=== PATIENT | female | born 1950 | race Hispanic/Latino ===

== ENCOUNTER 2017-04-08 09:05 | Emergency (ER) | payer MEDICARE ==
[2017-04-08 09:05] VITALS: BMI 28.8
[2017-04-08 09:26] VITALS: TEMP 98.2
--- NOTE | 2017-04-08 09:43 | ED PDOC ---
Arrival/HPI - General Chief Complaint: Back Pain Time Seen by Provider: 04/08/17 09:37 Historian: Patient - History of Present Illness Narrative History of Present Illness (Text): 04/08/17 09:43 This 67 yo female presents to this ED c/o left back pain x 3 days. Patient denies urinary symptoms, sob, cp, weakness, paresthesias, /GI incontinence, or trauma. Context: Home Past Medical History - Provider Review Nursing Documentation Reviewed: Yes - Infectious Disease Hx of Infectious Diseases: None - Tetanus Immunization Tetanus Immunization: Unknown - Cardiac Hx Hypertension: Yes - Pulmonary Hx Respiratory Disorders: No - Neurological Hx Neurological Disorder: No Hx Paralysis: No - HEENT Hx HEENT Disorder: No - Renal Hx Renal Disorder: No - Endocrine/Metabolic Hx Endocrine Disorders: No - Hematological/Oncological Hx Blood Transfusions: No Hx Blood Transfusion Reaction: No - Integumentary Hx Dermatological Disorder: No - Musculoskeletal/Rheumatological Hx Arthritis: Yes - Gastrointestinal Hx Gastrointestinal Disorders: No - Genitourinary/Gynecological Hx Genitourinary Disorders: No - Psychiatric Hx Psychophysiologic Disorder: No Hx Emotional Abuse: No Hx Physical Abuse: No Hx Substance Use: No - Past Surgical History Past Surgical History: No Previous - Surgical History Hx Orthopedic Surgery: Yes - Anesthesia Hx Anesthesia Reactions: No Hx Malignant Hyperthermia: No - Suicidal Assessment Feels Threatened In Home Enviroment: No Family/Social History - Physician Review Nursing Documentation Reviewed: Yes Family/Social History: No Known Family HX Smoking Status: Current Some Days Smoker Hx Alcohol Use: No Hx Substance Use: No Allergies/Home Meds Allergies/Adverse Reactions: Allergies No Known Allergies Allergy (Verified 04/08/17 09:21) Home Medications: Home Meds Medication Instructions Recorded Confirmed Folic Acid 1 mg PO DAILY 02/06/17 04/11/17 Meloxicam [Mobic] 15 mg PO DAILY PRN 02/06/17 04/11/17 Methotrexate [Methotrexate] 5 mg PO QWK 02/06/17 04/11/17 Pravastatin Sodium [Pravachol] 40 mg PO DAILY 02/06/17 04/11/17 amLODIPine [Norvasc] 5 mg PO DAILY 02/06/17 04/11/17 Hydrocodone/Ibuprofen 1 tab PO Q6H PRN 04/11/17 04/11/17 [Hydrocodone-Ibuprofen 7.5-200] Review of Systems - Review of Systems Constitutional: Normal. absent: Fatigue, Weight Change, Fevers Eyes: Normal ENT: Normal Respiratory: Normal Cardiovascular: Normal Gastrointestinal: Normal Genitourinary Female: Normal Musculoskeletal: Other ((+) 4th toe pain) Skin: Normal Neurological: Normal Endocrine: Normal Hemo/Lymphatic: Normal Psychiatric: Normal Physical Exam Vital Signs Temp Pulse Resp BP Pulse Ox 04/08/17 15:30 68 18 145/65 95 04/08/17 13:33 69 18 152/68 H 95 04/08/17 12:22 75 18 155/71 H 95 04/08/17 11:05 79 18 158/79 H 95 04/08/17 09:25 98.2 F 83 16 162/89 H 94 L Temperature: Afebrile Blood Pressure: Normal Pulse: Regular Respiratory Rate: Normal Appearance: Positive for: Well-Appearing, Non-Toxic, Comfortable Pain Distress: None Mental Status: Positive for: Alert and Oriented X 3 - Systems Exam Head: Present: Atraumatic, Normocephalic Pupils: Present: PERRL Extroacular Muscles: Present: EOMI Conjunctiva: Present: Normal Mouth: Present: Moist Mucous Membranes Neck: Present: Normal Range of Motion Respiratory/Chest: Present: Clear to Auscultation, Good Air Exchange. No: Respiratory Distress, Accessory Muscle Use Cardiovascular: Present: Regular Rate and Rhythm, Normal S1, S2. No: Murmurs Abdomen: Present: Normal Bowel Sounds. No: Tenderness, Distention, Peritoneal Signs Back: Present: Normal Inspection Upper Extremity: Present: Normal Inspection. No: Cyanosis, Edema Lower Extremity: Present: Normal Inspection, NORMAL PULSES, Normal ROM, Tenderness (MILD TENDERNESS OVER LEFT DISTAL 4TH TOE. NO ERYTHEMA, SWELLING, OR ECCHYMOSIS). No: Edema, CALF TENDERNESS, Cyanosis Neurological: Present: GCS=15, CN II-XII Intact, Speech Normal Skin: Present: Warm, Dry, Normal Color. No: Rashes Psychiatric: Present: Alert, Oriented x 3, Normal [facility] Medical Decision Making ED Course and Treatment: 04/08/17 13:[address] Tsang cell number and left a message to call me back 04/08/17 14:00 Dr. Tsang has not call back yet. I have munitions worker to call Dr. Tsang again. 04/08/17 15:[address] Tsang Urologist. He stated if pain is control, patient can be discharged home. He noted ureter stone is large. To call his cell number as soon patient is d/c home. 04/08/17 15:20 Patient understands risk of addiction when taking Percocet. Do not drive or operate machinery Re-evaluation Time: 11:48 Reassessment Condition: Re-examined, Improved - Lab Interpretations Lab Results: 04/08/17 11:50 04/08/17 11:50 Lab Results 04/08/17 11:50: Sodium 138, Potassium 4.2, Chloride 103, Carbon Dioxide 26, Anion Gap 13, BUN 25 H, Creatinine 0.9, Est GFR ( Amer) > 60, Est GFR ( Non-Af Amer) > 60, Random Glucose 104, Calcium 9.2, Total Bilirubin 1.6 H, AST 29, ALT 37, Alkaline Phosphatase 81, Total Protein 8.0, Albumin 4.1, Globulin 3.9, Albumin/Globulin Ratio 1.1 04/08/17 11:50: WBC 9.7, RBC 4.13, Hgb 13.6, Hct 40.2, MCV 97.3, MCH 32.9, MCHC 33.8, RDW 13.0, Plt Count 203, MPV 8.4, Gran % 66.3, Lymph % (Auto) 18.0 L, [place] % (Auto) 13.7 H, Eos % (Auto) 1.7, Baso % (Auto) 0.3, Gran # 6.42, Lymph # 1.7, [place] # 1.3 H, Eos # 0.2, Baso # 0.03 04/08/17 09:59: Urine Color Yellow, Urine Appearance Clear, Urine pH 6.0, Ur Specific [place] 1.020, Urine Protein Negative, Urine Glucose (UA) Negative, Urine Ketones Negative, Urine Blood Large H, Urine Nitrate Negative, Urine Bilirubin Negative, Urine Urobilinogen 0.2, Ur Leukocyte Esterase Negative, Urine RBC 5 - 10, Urine WBC Negative, Ur Epithelial Cells 1 - 3 I have reviewed the lab results: Yes Interpretation: Abnormal lab values (hematuria) - RAD Interpretation Narrative RAD Interpretations (Text): 04/08/17 11:30 Accession No. : [id number] Patient Name / ID : SILVIA VALENCIA / [id number] Exam Date : 04/08/2017 09:50:06 ( Approved ) Study Comment : Sex / Age : F 7Y Creator : Deepika Coleman MD Dictator : Deepika Coleman MD Comb Capper : Lighting Fixture Installer : Deepika Coleman MD Approver2 : Report Date : 04/08/2017 10:46:40 My Comment : PROCEDURE: Radiographs of the Lumbar Spine. HISTORY: pain COMPARISON: No prior. FINDINGS: BONES: Normal alignment. No listhesis. No compressive deformity DISC SPACES: Mild narrowing of intervertebral disc space at L5-S1. OTHER FINDINGS: Facet hypertrophy. Accession No. : [id number] Patient Name / ID : SILVIA VALENCIA / [id number] Exam Date : 04/08/2017 11:53:12 ( Approved ) Study Comment : Sex / Age : F Y Creator : Deepika Coleman MD Dictator : Deepika Coleman MD Comb Capper : Lighting Fixture Installer : Deepika Coleman MD Approver2 : Report Date : 04/08/2017 13:02:16 My Comment : PROCEDURE: CT Abdomen and Pelvis without contrast. HISTORY: left flank pain COMPARISON: None. TECHNIQUE: Contiguous axial images of the abdomen and pelvis. No oral or IV contrast given. Coronal and Sagittal reformats generated. Please note that due to lack of intravenous and oral contrast, evaluation of soft tissue structures and bowel is limited. Radiation dose: Total exam DLP = 588.88 mGy-cm. This CT exam was performed using one or more of the following dose reduction techniques: Automated exposure control, adjustment of the mA and/or kV according to patient size, and/or use of iterative reconstruction technique. FINDINGS: LOWER THORAX: Mild bibasilar atelectatic changes noted. Visualized portions of the heart demonstrates no significant pericardial effusion. Hiatal hernia with bubbly densities likely ingested material. LIVER: Multi lobulated hypodensities in the left lobe of the liver with internal attenuation off approximately 3-7 Hounsfield units likely represents cysts. GALLBLADDER AND BILE DUCTS: No evidence of acute cholecystitis. Possible Phrygian cap. PANCREAS: Unremarkable. No mass. No ductal dilatation. SPLEEN: Unremarkable. No splenomegaly. ADRENALS: Unremarkable. KIDNEYS AND URETERS: Mildly enlarged left kidney with moderate hydronephrosis. Mild ureteral dilatation. In the mid segment of the left ureter there is a radiopaque calculus measuring 0.5 x 0.5 x 1.2 centimeters. Additional nonobstructing punctate calculus in the left interpolar segment. Unremarkable right kidney. BLADDER: Grossly unremarkable. REPRODUCTIVE: Please note that evaluation of gynecologic organs is not optimal on CT imaging. APPENDIX: Unremarkable. BOWEL: Unremarkable. No obstruction. No gross mural thickening. Diverticulosis without evidence diverticulitis. PERITONEUM: Unremarkable. No fluid collection. No free air. LYMPH NODES: Unremarkable. No enlarged lymph nodes. VASCULATURE: Unremarkable. No aortic aneurysm. BONES: No fracture or destructive lesion. OTHER FINDINGS: None. IMPRESSION: 0.5 x 0.5 x 1.2 centimeter radiopaque calculus in the mid segment of the left ureter with mild to moderate hydroureteral nephrosis. Additional punctate radiopaque calculus in the left interpolar segment. Unremarkable right kidney. Other findings as above. Discussed TAMEKA Harris at approximately 1:05 p.m. on 04/08/2017. Mild vascular calcifications IMPRESSION: No compressive deformity. Degenerative changes. 04/08/17 13:09 Radiology Orders: 04/08/17 09:44 LS SPINE WITH OBL > 18 YRS OLD [RAD] Stat 04/08/17 11:07 ABD & PELVIS W/O PO OR IV CONT [CT] Stat - Medication Orders Current Medication Orders: Discontinued Medications Sodium Chloride (Sodium Chloride 0.9%) 500 mls @ 999 mls/hr IV .Q31M STA Stop: 04/08/17 13:36 Last Admin: 04/08/17 13:34 Dose: 999 mls/hr Ketorolac Tromethamine (Toradol) 15 mg IVP STAT STA Stop: 04/08/17 13:04 Last Admin: 04/08/17 13:33 Dose: 15 mg Ondansetron HCl (Zofran Odt) 4 mg PO STAT STA Stop: 04/08/17 09:47 Last Admin: 04/08/17 10:04 Dose: 4 mg Oxycodone/Acetaminophen (Percocet 5/325 Mg Tab) 1 tab PO STAT STA Stop: 04/08/17 09:46 Last Admin: 04/08/17 09:59 Dose: 1 tab Tamsulosin HCl (Flomax) 0.4 mg PO STAT STA Stop: 04/08/17 13:05 Last Admin: 04/08/17 13:34 Dose: 0.4 mg Disposition/Present on Arrival - Present on Arrival Any Indicators Present on Arrival: No History of DVT/PE: No History of Uncontrolled Diabetes: No Urinary Catheter: No History of Decub. Ulcer: No History Surgical Site Infection Following: None - Disposition Have Diagnosis and Disposition been Completed?: Yes Diagnosis: Ureterolithiasis, Flank pain Disposition: HOME/ ROUTINE Disposition Time: 15:15 Patient Plan: Discharge Condition: IMPROVED Discharge Instructions (ExitCare): Kidney Stones (ED), How to Strain Your Urine (ED) Additional Instructions: Call Dr. Tsang at [phone] cell number. Take medication as instructed with food. Return to emergency if symptoms worsen. Prescriptions: Docusate Sodium [Colace] 100 mg PO BID #20 capsule Tamsulosin [Flomax] 0.4 mg PO DAILY #20 cap Referrals: Ludivina Diamond MD [Primary Care Provider] - Follow up with primary Joey Tsang MD [Staff Provider] - Follow up with primary
[2017-04-08] MEDS ORDERED: Oxycodone/Acetaminophen 5/325 mg Tab PO STA (09:45)
[2017-04-08 10:30] LABS: URINE BILIRUBIN NEGATIVE (NEGATIVE); URINE BLOOD LARGE (NEGATIVE); URINE GLUCOSE (UA) NEGATIVE (NEGATIVE); URINE KETONE NEGATIVE (NEGATIVE); URINE LEUKOCYTE ESTERASE NEGATIVE Leu/uL (NEGATIVE); URINE PROTEIN NEGATIVE mg/dL (<30 mg/dL); URINE UROBILINOGEN 0.2 E.U./dL (<1 E.U./dL)
[2017-04-08 10:34] LABS: URINE APPEARANCE CLEAR (CLEAR); URINE COLOR YELLOW (YELLOW)
[2017-04-08 10:35] LABS: URINE WBC NEGATIVE /hpf (0-6)
--- NOTE | 2017-04-08 10:48 | RAD ---
PROCEDURE: Radiographs of the Lumbar Spine. HISTORY: pain COMPARISON: No prior. FINDINGS: BONES: Normal alignment. No listhesis. No compressive deformity DISC SPACES: Mild narrowing of intervertebral disc space at L5-S1. OTHER FINDINGS: Facet hypertrophy. Mild vascular calcifications IMPRESSION: No compressive deformity. Degenerative changes.
[2017-04-08 11:08] VITALS: RESP 18; O2SAT 95
[2017-04-08 11:52] LABS: ADD MANUAL DIFF? NO
[2017-04-08 12:00] LABS: BASO # 0.03 K/mm3 (0.0-2.0); BASO % 0.3 % (0.0-3.0); EOS # 0.2 (0.0-0.7); EOS % 1.7 % (1.5-5.0); GRAN # 6.42 (1.4-6.5); GRAN % 66.3 % (50.0-68.0); HEMATOCRIT 40.2 % (36.0-48.0); LYMPH # 1.7 (1.2-3.4); MEAN CELL VOLUME 97.3 fL (80.0-105.0); MEAN CORPUSCULAR HEMOGLOBIN 32.9 pg (25.0-35.0); MEAN CORPUSCULAR HGB CONC 33.8 g/dl (31.0-37.0); MEAN PLATELET VOLUME 8.4 fl (7.0-11.0); MONO # 1.3 (0.1-0.6); MONO % 13.7 % (1.0-6.0); PLATELET COUNT 203 10^3/uL (120.0-450.0); WHITE BLOOD COUNT 9.7 10^3/ul (4.5-11.0)
[2017-04-08 12:12] LABS: ALB/GLOB RATIO 1.1 (1.1-1.8); ALKALINE PHOSPHATASE 81 U/L (38-133); ALT/SGPT 37 U/L (7-56); AST/SGOT 29 U/L (15-39); BILIRUBIN,TOTAL 1.6 mg/dL (0.2-1.3); BLOOD UREA NITROGEN 25 mg/dL (7-21); CALCIUM 9.2 mg/dL (8.4-10.5); CARBON DIOXIDE 26 mmol/L (21-33); CHLORIDE 103 mmol/L (98-107); GFR AFRICAN-AMERICAN > 60; GLUCOSE,RANDOM 104 mg/dL (70-110); POTASSIUM 4.2 mmol/L (3.6-5.0); SODIUM 138 mmol/L (132-148)
--- NOTE | 2017-04-08 13:03 | CT ---
PROCEDURE: CT Abdomen and Pelvis without contrast. HISTORY: left flank pain COMPARISON: None. TECHNIQUE: Contiguous axial images of the abdomen and pelvis. No oral or IV contrast given. Coronal and Sagittal reformats generated. Please note that due to lack of intravenous and oral contrast, evaluation of soft tissue structures and bowel is limited. Radiation dose: Total exam DLP = 588.88 mGy-cm. This CT exam was performed using one or more of the following dose reduction techniques: Automated exposure control, adjustment of the mA and/or kV according to patient size, and/or use of iterative reconstruction technique. FINDINGS: LOWER THORAX: Mild bibasilar atelectatic changes noted. Visualized portions of the heart demonstrates no significant pericardial effusion. Hiatal hernia with bubbly densities likely ingested material. LIVER: Multi lobulated hypodensities in the left lobe of the liver with internal attenuation off approximately 3-7 Hounsfield units likely represents cysts. GALLBLADDER AND BILE DUCTS: No evidence of acute cholecystitis. Possible Phrygian cap. PANCREAS: Unremarkable. No mass. No ductal dilatation. SPLEEN: Unremarkable. No splenomegaly. ADRENALS: Unremarkable. KIDNEYS AND URETERS: Mildly enlarged left kidney with moderate hydronephrosis. Mild ureteral dilatation. In the mid segment of the left ureter there is a radiopaque calculus measuring 0.5 x 0.5 x 1.2 centimeters. Additional nonobstructing punctate calculus in the left interpolar segment. Unremarkable right kidney. BLADDER: Grossly unremarkable. REPRODUCTIVE: Please note that evaluation of gynecologic organs is not optimal on CT imaging. APPENDIX: Unremarkable. BOWEL: Unremarkable. No obstruction. No gross mural thickening. Diverticulosis without evidence diverticulitis. PERITONEUM: Unremarkable. No fluid collection. No free air. LYMPH NODES: Unremarkable. No enlarged lymph nodes. VASCULATURE: Unremarkable. No aortic aneurysm. BONES: No fracture or destructive lesion. OTHER FINDINGS: None. IMPRESSION: 0.5 x 0.5 x 1.2 centimeter radiopaque calculus in the mid segment of the left ureter with mild to moderate hydroureteral nephrosis. Additional punctate radiopaque calculus in the left interpolar segment. Unremarkable right kidney. Other findings as above. Bret Harris at approximately 1:05 p.m. on 04/08/2017.
[2017-04-08] MEDS ORDERED: Sodium Chloride 0.9% 500 ML IV STA (13:06)
[2017-04-08 15:31] VITALS: BP 145/65; PULSE 68
== END 2017-04-08 15:32 | disposition home or self-care (01) ==
LOC: ED 09:05
DX: N20.1 Calculus of ureter (principal); R10.9 Unspecified abdominal pain
CPT/HCPCS: 72110; 74176; 80053; 81001; 85025; 96374; 99285; J1885; J7040

== ENCOUNTER 2017-04-11 13:07 | Day surgery (SDC) | payer MEDICARE ==
[2017-04-11 09:04] VITALS: BMI 28.3
[2017-04-11] MEDS ORDERED: Midazolam 2 MG/2 ML VIAL ONE (14:10)
[2017-04-11] MEDS ORDERED: Propofol 10 mg/ml Inj (20 ML) ONE (14:10)
[2017-04-11] MEDS ORDERED: Lidocaine 2% Inj (20ml) ONE (14:12)
[2017-04-11] MEDS ORDERED: Iohexol 240 (50 ml) ONE (14:27)
[2017-04-11] MEDS ORDERED: cefTRIAXone (Rocephin) 1 gm Inj ONE (14:27)
[2017-04-11] MEDS ORDERED: Oxycodone/Acetaminophen 5/325 mg Tab PO PRN (14:42)
[2017-04-11] MEDS ORDERED: Gentamicin 80 mg/2mL Inj. IVPB ONE (14:45)
[2017-04-11] MEDS ORDERED: cefTRIAXone (Rocephin) 1 gm Inj IVPB ONE (14:45)
[2017-04-11] MEDS ORDERED: Gentamicin 80 mg/2mL Inj. ONE (14:47)
--- NOTE | 2017-04-11 15:21 | HP ---
REASON FOR EMERGENCY ADMISSION: Kidney stone disease. HISTORY OF PRESENT ILLNESS: A very pleasant lady who presents to the hospital. She is 67 years old. She actually had been ongoing with pain back and forth for a couple of days. Finally she came in t o the ER over the weekend and then she had severe pain. Since then, she has actually taken all her Percocet. I contacted the patient over the weekend where we discussed plans. She has been having ongoing pain, but she tells that she thought she was supposed to have this amount of pain. So I met the patient last night and we are bringing her in for an emergency admission for treatment of a stone. We discussed options including cysto, ureteroscopy, laser lithotripsy, which is what we are planning on. I discussed ESWL therapy. I discussed cysto and stent insertion, which may be what we end up do ing depending on what happens. If I, for example, find pus during the procedure. After discussing t he options, she is being admitted. See plans below. PAST MEDICAL AND SURGICAL HISTORY: She is a patient of ____. REVIEW OF SYSTEMS: Listed above, otherwise noncontributory. No weight loss, chest pain, shortness o f breath or the like. SOCIAL HISTORY: She is in the office with her . She is retired from [employer]. [facility] MEDICATIONS: She is on Flomax, folic acid. She is on the pain medicines as given. She also has underlying rheumatoid arthritis for which she is on methotrexate. She is also on Mobic. She is on Norvasc. This also altered some of our recommendations and plans. PHYSICAL EXAMINATION: GENERAL: Well-nourished female in no apparent distress. VITAL SIGNS: Noted. ____ LUNGS: Clear. HEART: Normal S1. ABDOMEN: Overall soft, nontender, no flank masses. PELVIC: Deferred to cystoscopy. See the below note. CT scan, labs all noted. Large stone, more than a centimeter I saw in size. DIAGNOSES: Urolithiasis, severe renal colic and pain. PLAN: This is an emergency admission. We are going to bring the patient straight to the hospital an d go straight to the operating room for cysto, ureteroscopy, laser lithotripsy if we can. We may jus t put a stent in, depending on what we find clinically. I told the patient I am going to do as much as I can. I may even do a cysto, ureteroscopy, laser lithotripsy and leave a stent with dangles. All this has been discussed in detail. Will see how the procedure goes. PLAN: 1. Antibiotic prophylaxis. 2. Ureteroscopy. 3. Further plans to follow. Chai Tsang MD cc: [phone] TT: 04/11/2017 15:21:32 mn
[2017-04-11] MEDS ORDERED: HYDROmorphone 0.5 mg/0.5 ml ISec IVP PRN (15:25)
[2017-04-11] MEDS ORDERED: Sodium Chloride 0.9% 1,000 ML IV SCH (15:30)
[2017-04-11 16:46] VITALS: TEMP 97.8
[2017-04-11 17:17] VITALS: BP 127/60; PULSE 73; RESP 18; O2SAT 95
--- NOTE | 2017-04-11 19:43 | OP ---
PROCEDURE DATE: 04/11/2017 PREOPERATIVE DIAGNOSES: Urolithiasis, hematuria, severe renal colic. POSTOPERATIVE DIAGNOSES: Urolithiasis, hematuria, severe renal colic. PROCEDURE: Cystoscopy, removal of a left stone, stone basketing, a left retrograde pyelogram, left u reteroscopy, insertion of a left double-J stent with dangles. COMPLICATIONS: There were no complications. BLOOD LOSS: Less than 20 mL. At the termination of the procedure, we removed the stone and some little fragments are also noted. There were no complications. At the termination of the procedure, we have a double-J stent in place with an empty bladder in place with dangles ____ away in the vagina. INDICATIONS: See history and physical. This is a very pleasant lady who presented with a long histo ry of a kidney stone for the last couple of days or more. I have been speaking over the weekend. She did not pass the stone, it is a sizable stone. This was actually sent off to the lab for analysis. We discussed options and she is here. I discussed ESWL, I discussed various options for treatment an d she is now here for the above treatment. PROCEDURE: After obtaining informed consent, the patient placed on the table, routine monitors place d, timeouts were called. [employer] films are performed. The calcification which I think is in her distal ureter is in fact the actual stone. I took multiple fluoroscopic imaging. These were submitted for the radiologist, but even if they are not, even if t he radiologist does not read it, it is there as clear as day. I put the scope on the stone and took a fluoroscopy. The stone is actually to the point that the beginning of the procedure is as follows: Normally I would put a wire in or a retrograde pyelogram, but it is so close and so blockin g the orifice that I cannot unless I crush it. My concern of course is if I crush in pieces, then it is going to still be blocking and we have not gotten it all out. It turns out it does break a little bit, but just ____ and most of the stone was removed grossly inta ct, but see the plans listed below because what I did in the end, I also want to go with the ureteros cope to basket the rest of it, but basically I am able to grab it with a ____. I took nice beautiful pictures and we were able to deliver most of the stone that is there intact. I then took more pictu res of the orifice, left and right. Retrograde pyelograms are performed. Films are submitted. There is no other definite stone seen within the ureter. At this point, with the wire in place, I go adjacent to the wire with the ureteroscope. There are like little teeny weeny less than a half millimeter stone, like just pieces that you can vi sualize because you are under the ureteroscope, going all the way up to the renal pelvis ____ with fl uoroscopic imaging. Oddly enough, there is not any real pus behind the stone. Now with the wire, I went adjacent to the wire, now the wire is still in place. I confirmed its posi tioning. I removed the ureteroscope under direct vision. I put a basket in. I feel a little ____ if I can just grab anything they are so small, but it is all too small, even to fit in the basket. Really that small, just little pieces. At this point, we have the wire in place, put a double-J stent in with dangles, emptied the bladder. The patient tolerated well without complication. NAME OF PROCEDURE: Cystoscopy, a stone basketing, retrograde pyelogram on the left, left ureteroscop y, insertion of a left double-J stent with dangles. There were no complications. ADDENDUM: Basically we sent the stone to the lab. It is black, yellow. Pictures were taken. There are beautiful pictures in the chart, including the pictures of the ureteroscope with a little, littl e, teeny, teeny, weeny fragments. Then what we note is at the end of the procedure, we put the double-J stent in good location. I do want to mention that I put in the lower pole and then it slipped down to the renal pelvis. So I readjusted. I actually took the wire and did a whole second adjustment, get it again in the low er pole and then again it slides down. At this point, I figured we know that we have done no real trauma, it was really a very easy going pr ocedure. We did not do any lasering. So I have also given the patient a little Toradol. I left a double-J stent with some dangles. I expe ct her to do very well and have the dangles removed in about a day or so. Chai Tsang MD cc: [phone] TT: 04/11/2017 19:42:45 evelio
--- NOTE | 2017-04-12 15:25 | RAD ---
PROCEDURE: Fluoroscopy up to 1 hour HISTORY: RETROGRADE PYELOGRAM/ STONE REMOVAL /STENT INSERTION {LEFT} COMPARISON: TECHNIQUE: Fluoroscopy was provided in the operating room. 34 seconds of fluoroscopy time was utilized. 13 images were submitted FINDINGS: Study shows placement of instruments in the left ureter with opacification of the collecting system. There is placement of a left ureteral stent IMPRESSION: As above
== END 2017-04-11 17:50 | disposition home or self-care (01) ==
LOC: SDS 13:07
PROVIDERS: ATTEND Urology
DX: N20.1 Calculus of ureter (principal)
CPT/HCPCS: 52332; 52352; 76000; 88300; C1758 ×2; C1769; C2625; J0696; J1170; J1580; J1885; J2250; J2704; J3010; J7040; J7120; Q9966